=== PATIENT | male | born 1950 | race Caucasian/White ===

== ENCOUNTER 2018-05-08 10:47 | Day surgery (SDC) | payer OTHER ==
[~2018-05-08] VITALS: Ht 177.8 cm; Wt 80.3 kg
[~2018-05-08 10:47] MED LIST: LEVO75TA4 PO
[2018-05-08 11:40] VITALS: BP 165/70
--- NOTE | 2018-05-08 13:00 | NUR ---
ROBYN BUTTUN CHANGE PER DR VORA, 24FR ROBYN BUTTON INSERTED
== END 2018-05-08 13:10 | disposition home or self-care (01) ==
LOC: DAH 10:47
PROVIDERS: ATTEND Internal Medicine Gastroenterology
DX: K94.23 Gastrostomy malfunction (principal); Z85.46 Personal history of malignant neoplasm of prostate; Z80.0 Family history of malignant neoplasm of digestive organs; Z98.890 Other specified postprocedural states; Z79.899 Other long term (current) drug therapy
CPT/HCPCS: 43762; A4606; B4082; 43760

== ENCOUNTER 2018-11-15 08:57 | Day surgery (SDC) | payer OTHER ==
[~2018-11-15] VITALS: Ht 180.3 cm; Wt 78.0 kg
[~2018-11-15 08:57] MED LIST changes: +SODIUM CHLORIDE 0.9% 1000ML 1,000 ML IV ONE
[2018-11-15 10:35] VITALS: BP 141/68
== END 2018-11-15 10:50 | disposition home or self-care (01) ==
LOC: ENDO 08:57 → DAH 08:57 → ENDO 10:50
PROVIDERS: ATTEND Internal Medicine Gastroenterology
DX: K94.29 Other complications of gastrostomy (principal); K94.23 Gastrostomy malfunction; R13.12 Dysphagia, oropharyngeal phase; Y83.3 Surgical operation with formation of external stoma as the cause of abnormal reaction of the patient, or of later complication, without mention of misadventure at the time of the procedure; Z79.899 Other long term (current) drug therapy; Z85.46 Personal history of malignant neoplasm of prostate; Z85.818 Personal history of malignant neoplasm of other sites of lip, oral cavity, and pharynx; Z90.49 Acquired absence of other specified parts of digestive tract; Z98.890 Other specified postprocedural states; E03.9 Hypothyroidism, unspecified
CPT/HCPCS: 43762; B4088; J7030; 43761

== ENCOUNTER → 2019-04-10 | Outpatient (CLI) | payer OTHER ==
[~2019-04-10] MED LIST changes: -SODIUM CHLORIDE 0.9% 1000ML 1,000 ML IV ONE
== END | disposition home or self-care (01) ==
LOC: OIH 13:08
PROVIDERS: ATTEND Internal Medicine
DX: J18.0 Bronchopneumonia, unspecified organism (principal)
CPT/HCPCS: 71046